=== PATIENT | female | born 1935 | race Caucasian/White ===

== ENCOUNTER 2019-04-21 10:26 | Emergency (ER) | payer MEDICARE, BC ==
[~2019-04-21] VITALS: Ht 162.6 cm; Wt 80.0 kg
[~2019-04-21 10:26] MED LIST: ATOR20TA PO; BENA20TA82 PO; CALC-642 PO; CHOL200035 PO; DEXL60CA3 PO; FESO8TAB PO; METO50TA7 PO; MULT1TAB PO; OMEP-84 PO; SYN0.088T PO
[2019-04-21] MEDS ORDERED: ketorolac trometh inj. 60 MG/2 ML VIAL IM ONE (12:20)
[2019-04-21] MEDS ORDERED: TRAM50TA2 PO (13:05)
[2019-04-21 13:46] VITALS: BP 148/69
--- NOTE | 2019-04-21 14:12 | NUR ---
[employer] EMAN AT BEDSIDE
== END 2019-04-21 14:28 | disposition home or self-care (01) ==
LOC: ER 10:27
DX: S22.088A Other fracture of T11-T12 vertebra, initial encounter for closed fracture (principal); S20.211A Contusion of right front wall of thorax, initial encounter; E78.00 Pure hypercholesterolemia, unspecified; I10 Essential (primary) hypertension; M19.90 Unspecified osteoarthritis, unspecified site; Z88.2 Allergy status to sulfonamides; Z88.8 Allergy status to other drugs, medicaments and biological substances; Z79.899 Other long term (current) drug therapy; Z90.49 Acquired absence of other specified parts of digestive tract; Z90.710 Acquired absence of both cervix and uterus; Z98.890 Other specified postprocedural states; W01.198A Fall on same level from slipping, tripping and stumbling with subsequent striking against other object, initial encounter; Y93.89 Activity, other specified; Y92.89 Other specified places as the place of occurrence of the external cause; Y99.8 Other external cause status
CPT/HCPCS: 71101; 96372; 99284; J1885

== ENCOUNTER 2019-06-12 06:58 | Day surgery (SDC) | payer MEDICARE, BC ==
[~2019-06-12] VITALS: Ht 160 cm; Wt 71.6 kg
[2019-06-12] VITALS (8 sets, daily range): BP systolic 145–181; BP diastolic 72–97
[2019-06-12] MEDS ORDERED: normal saline 1000ml 1,000 ML IV SCH ×2 (07:35→10:03)
[2019-06-12] MEDS ORDERED: cefazolin/dext.iso 2gm/50ml 50 ML IV ONE (07:35)
[2019-06-12 07:47] LABS: BASOPHILS # (AUTO) 0.1 X10'3 (0-0.2); BASOPHILS % (AUTO) 1.1 % (0-1); EOSINOPHILS # (AUTO) 0.2 X10'3 (0-0.9); HEMATOCRIT 44.4 % (35.0-45.0); HEMOGLOBIN 15.2 g/dl (12.0-16.0); LYMPHOCYTES # (AUTO) 1.2 X10'3 (1.1-4.8); LYMPHOCYTES % (AUTO) 16.3 % (21-51); MEAN CORPUSCULAR HEMOGLOBIN 31.4 PG (27.0-31.0); MEAN CORPUSCULAR HGB CONC 34.3 g/dL (33.0-36.5); MEAN CORPUSCULAR VOLUME 91.6 FL (78-98); MEAN PLATELET VOLUME 7.1 FL (7.4-10.4); MONOCYTES # (AUTO) 0.8 X10'3 (0-0.9); MONOCYTES % (AUTO) 10.4 % (2-12); NEUTROPHILS # (AUTO) 5.2 X10'3 (1.8-7.7); NEUTROPHILS % (AUTO) 69.2 % (42-75); PLATELET COUNT 231 X10'3 (140-440); RED BLOOD COUNT 4.84 X10'6 (4.20-5.60); RED CELL DISTRIBUTION WIDTH 14.3 % (11.5-14.5); WHITE BLOOD COUNT 7.6 X10'3 (4.5-11.0)
[2019-06-12] MEDS ORDERED: midazolam 2 mg/2 ml injection IV PRN (07:50)
[2019-06-12] MEDS ORDERED: ceFAZolin 2gm in dextrose, iso 100 ML IV ONE (07:50)
[2019-06-12] MEDS ORDERED: LIDOcaine 1% (10mg/ml) 2ml vial SQ ONE (07:50)
[2019-06-12] MEDS ORDERED: diphenhydrAMINE 50 mg/ml inj IV ONE (07:50)
[2019-06-12] MEDS ORDERED: fentaNYL/PF 50MCG/1 ML 2ML syringe IV PRN (07:50)
[2019-06-12 07:51] LABS: ALBUMIN 3.8 G/DL (3.4-5.0); ANION GAP 11 (8-16); BLOOD UREA NITROGEN 5 MG/DL (7-18); BUN/CREATININE RATIO 7.4 (6.6-38.0); CALCIUM 10.1 MG/DL (8.5-10.1); CHLORIDE 101 MMOL/L (99-107); CREATININE 0.68 MG/DL (0.40-0.90); GLUCOSE 107 MG/DL (70-104); POTASSIUM 3.8 MMOL/L (3.5-5.1); SODIUM 138 MMOL/L (135-145); TOTAL CARBON DIOXIDE 25.7 MMOL/L (24-32); eGFR 82 ML/MIN
[2019-06-12] MEDS ORDERED: VITA400C19 PO (07:56)
[2019-06-12] MEDS ORDERED: OXYB10TA4 PO (07:56)
[2019-06-12] MEDS ORDERED: FISH1CAP15 PO (07:56)
[2019-06-12] MEDS ORDERED: SYN0.112T PO (07:56)
[2019-06-12] MEDS ORDERED: GLUC100017 (07:56)
[2019-06-12] MEDS ORDERED: LIDOcaine 1%/PF 5ML 10 MG/ML VIAL ONE ×2 (08:18→08:57)
[2019-06-12] MEDS ORDERED: midazolam 2 mg/2 ml injection ONE ×3 (08:18→09:12)
[2019-06-12] MEDS ORDERED: diphenhydrAMINE 50 mg/ml inj ONE (08:18)
[2019-06-12] MEDS ORDERED: iohexol 300 MG/1 ML 50ml polymer ONE (08:18)
[2019-06-12] MEDS ORDERED: fentaNYL/PF 50MCG/1 ML 2ML syringe ONE ×3 (08:18→09:12)
[2019-06-12] MEDS ORDERED: morphine 4 MG/ML inj SYRINge IV PRN (10:05)
[2019-06-12] MEDS ORDERED: HYDROcodone/acetaminophen 5mg/325mg tablet PO PRN (10:05)
== END 2019-06-12 13:15 | disposition home or self-care (01) ==
LOC: SSTAY O 06:58
PROVIDERS: ATTEND Radiology Vascular & Interventional Radiology
DX: M48.54XA Collapsed vertebra, not elsewhere classified, thoracic region, initial encounter for fracture (principal); M48.56XA Collapsed vertebra, not elsewhere classified, lumbar region, initial encounter for fracture; M54.9 Dorsalgia, unspecified; M81.0 Age-related osteoporosis without current pathological fracture; E03.9 Hypothyroidism, unspecified; E78.00 Pure hypercholesterolemia, unspecified; K21.9 Gastro-esophageal reflux disease without esophagitis; Z87.891 Personal history of nicotine dependence; Z90.49 Acquired absence of other specified parts of digestive tract; Z90.710 Acquired absence of both cervix and uterus; Z98.890 Other specified postprocedural states; Z88.2 Allergy status to sulfonamides; Z88.8 Allergy status to other drugs, medicaments and biological substances; Z79.899 Other long term (current) drug therapy
CPT/HCPCS: 22513; 22515; 36415; 80048; 85025; 85610; C1713; J1200; J2250; J3010; J7030; Q9967; 99152; 99153

== ENCOUNTER 2021-05-01 20:42 | Inpatient (IN) | payer MEDICARE, BC ==
[~2021-05-01] VITALS: Ht 165.1 cm; Wt 72.7 kg
[~2021-05-01 20:42] MED LIST changes: -BENA20TA82 PO; -CHOL200035 PO; -DEXL60CA3 PO; -FESO8TAB PO; +FISH1CAP15 PO; +GLUC100017 PO; +HYDR-3972 PO; +METO-384 PO; -METO50TA7 PO; -MULT1TAB PO; +OXYB10TA30 PO; -SYN0.088T PO; +SYN0.112T PO; +VITA-336 PO
[2021-05-01 21:47] LABS: BASOPHILS # (AUTO) 0.1 X10'3 (0-0.2); BASOPHILS % (AUTO) 0.9 % (0-1); EOSINOPHILS # (AUTO) 0.3 X10'3 (0-0.9); EOSINOPHILS % (AUTO) 3.6 % (0-6); HEMATOCRIT 38.8 % (35.0-45.0); HEMOGLOBIN 13.2 g/dl (12.0-16.0); LYMPHOCYTES # (AUTO) 1.2 X10'3 (1.1-4.8); LYMPHOCYTES % (AUTO) 15.4 % (21-51); MEAN CORPUSCULAR HGB CONC 33.9 g/dL (33.0-36.5); MEAN CORPUSCULAR VOLUME 88.6 FL (78-98); MEAN PLATELET VOLUME 6.6 FL (7.4-10.4); MONOCYTES # (AUTO) 0.8 X10'3 (0-0.9); MONOCYTES % (AUTO) 9.7 % (2-12); NEUTROPHILS # (AUTO) 5.5 X10'3 (1.8-7.7); NEUTROPHILS % (AUTO) 70.4 % (42-75); PLATELET COUNT 179 X10'3 (140-440); RED BLOOD COUNT 4.38 X10'6 (4.20-5.60); RED CELL DISTRIBUTION WIDTH 14.3 % (11.5-14.5); WHITE BLOOD COUNT 7.8 X10'3 (4.5-11.0)
[2021-05-01 22:02] LABS: ALANINE AMINOTRANSFERASE 39 U/L (12-78); ALBUMIN 3.4 G/DL (3.4-5.0); ALKALINE PHOSPHATASE 184 IU/L (46-116); ANION GAP 10 (8-16); ASPARTATE AMINO TRANSFERASE 25 U/L (10-37); BILIRUBIN,TOTAL 0.5 MG/DL (0.1-1.0); BLOOD UREA NITROGEN 7 MG/DL (7-18); BUN/CREATININE RATIO 11.3 (6.6-38.0); CHLORIDE 99 MMOL/L (99-107); CREATININE 0.62 MG/DL (0.40-0.90); GLUCOSE 118 MG/DL (70-104); POTASSIUM 3.7 MMOL/L (3.5-5.1); SODIUM 135 MMOL/L (135-145); TOTAL CARBON DIOXIDE 26.2 MMOL/L (24-32); TOTAL PROTEIN 6.9 G/DL (6.4-8.2); eGFR > 90 ML/MIN
[2021-05-01] MEDS ORDERED: potassium Cl 40MEQ/1/2NS 520ml 520 ML IV PRN ×2 (22:10)
[2021-05-01] MEDS ORDERED: PERFLUTREN PROTEIN-A MICROSPHR (Optison) 0.22 MG/ML 3ML VIAL IV ONE (22:10)
[2021-05-01] MEDS ORDERED: magnesium 2GM in 50ml NS 50 ML IV PRN (22:10)
[2021-05-01] MEDS ORDERED: acetaminophen 325mg tablet PO PRN (22:10)
[2021-05-01] MEDS ORDERED: magnesium Cl slow-release 64mg tablet PO PRN (22:10)
[2021-05-01] MEDS ORDERED: mag hydrox/Alum hydrox/simeth 30ml oral suspension PO PRN (22:10)
[2021-05-01] MEDS ORDERED: potassium Cl 20 mEq SR tablet PO PRN ×2 (22:10)
[2021-05-01] MEDS ORDERED: morphine 2 MG/ML inj. syringe IV PRN (22:10)
[2021-05-01] MEDS ORDERED: magnesium 4gm in 100ml NS 100 ML IV PRN (22:10)
[2021-05-01] MEDS ORDERED: ondansetron/PF 4mg/2ml inj IV PRN (22:10)
[2021-05-01 22:13] LABS: CLARITY,URINE CLEAR (Clear); COLOR,URINE YELLOW (Yellow); GLUCOSE, URINE NEGATIVE (Neg); KETONES,URINE NEGATIVE (Neg); LEUKOCYTE ESTERASE ,URINE TRACE (Neg); NITRITES, URINE NEGATIVE (Neg); OCCULT BLOOD,URINE NEGATIVE (Neg); PROTEIN,URINE NEGATIVE (Neg); UROBILINOGEN,URINE 0.2 E.U/dL (0.2-1.0)
[2021-05-01 22:15] LABS: UA COLLECTION TYPE STRAIGHT CATH
[2021-05-01 22:18] LABS: PARTIAL THROMBOPLASTIN TIME 31 SECONDS (22-32)
[2021-05-01 22:21] LABS: BACTERIA,URINE 1+ /HPF (Neg); MUCUS STRANDS NONE SEEN /LPF (Neg); RBC,URINE 0-2 /HPF (0-2); SQUAMOUS EPITHELIAL CELL,UR FEW /LPF (FEW); WBC,URINE 0-4 /HPF (0-4)
[2021-05-01] MEDS: dextrose 5%-1/2 normal saline 1,000 ML IV SCH (22:48)
[2021-05-02] VITALS (21 sets, daily range): BP systolic 109–168; BP diastolic 47–84
--- NOTE | 2021-05-02 00:38 | NUR ---
Dr. Chao notified of current elevated BP, new orders received.
[2021-05-02] MEDS ORDERED: hydrALAZINE 20mg/ml inj. IV PRN (00:40)
--- NOTE | 2021-05-02 00:52 | NUR ---
Receiving ISAAC Baldwin notified of hydralizine administration and order.
--- NOTE | 2021-05-02 00:55 | NUR ---
[facility] difficulty.
--- NOTE | 2021-05-02 06:23 | NUR ---
Problems reprioritized. Patient report given, questions answered & plan of care reviewed with Gayatri GRAY.
--- NOTE | 2021-05-02 06:33 | NUR ---
Patient in room ORTHO 4009. I have received report from nancy green and had the opportunity to ask questions and assume patient care.
[2021-05-02 07:02] LABS: BASOPHILS % (AUTO) 0.4 % (0-1); EOSINOPHILS # (AUTO) 0.1 X10'3 (0-0.9); EOSINOPHILS % (AUTO) 1.1 % (0-6); HEMATOCRIT 37.2 % (35.0-45.0); HEMOGLOBIN 12.8 g/dl (12.0-16.0); LYMPHOCYTES # (AUTO) 1.1 X10'3 (1.1-4.8); LYMPHOCYTES % (AUTO) 13.6 % (21-51); MEAN CORPUSCULAR HGB CONC 34.4 g/dL (33.0-36.5); MEAN CORPUSCULAR VOLUME 87.3 FL (78-98); MEAN PLATELET VOLUME 6.6 FL (7.4-10.4); MONOCYTES # (AUTO) 0.8 X10'3 (0-0.9); MONOCYTES % (AUTO) 10.1 % (2-12); NEUTROPHILS # (AUTO) 5.8 X10'3 (1.8-7.7); NEUTROPHILS % (AUTO) 74.8 % (42-75); PLATELET COUNT 172 X10'3 (140-440); RED BLOOD COUNT 4.26 X10'6 (4.20-5.60); WHITE BLOOD COUNT 7.8 X10'3 (4.5-11.0)
[2021-05-02 07:31] LABS: ALANINE AMINOTRANSFERASE 53 U/L (12-78); ALBUMIN 2.9 G/DL (3.4-5.0); ALBUMIN/GLOBULIN RATIO 0.9 (1.1-1.5); ALKALINE PHOSPHATASE 167 IU/L (46-116); ANION GAP 9 (8-16); ASPARTATE AMINO TRANSFERASE 39 U/L (10-37); BILIRUBIN,TOTAL 0.6 MG/DL (0.1-1.0); BLOOD UREA NITROGEN 5 MG/DL (7-18); BUN/CREATININE RATIO 8.9 (6.6-38.0); CALCIUM 8.7 MG/DL (8.5-10.1); CHLORIDE 99 MMOL/L (99-107); CHOL/HDL RATIO 2.8 (0.00-4.99); CHOLESTEROL 138 MG/DL (0-200); CREATININE 0.56 MG/DL (0.40-0.90); GLUCOSE 124 MG/DL (70-104); HDL CHOLESTEROL 49 MG/DL (35-60); LDL CHOLESTEROL 67 MG/DL (50-100); MAGNESIUM 1.7 MG/DL (1.5-2.4); POTASSIUM 3.8 MMOL/L (3.5-5.1); SODIUM 134 MMOL/L (135-145); TOTAL CARBON DIOXIDE 26.1 MMOL/L (24-32); TOTAL PROTEIN 6.3 G/DL (6.4-8.2); TRIGLYCERIDES 72 MG/DL (20-135); eGFR > 90 ML/MIN
[2021-05-02] MEDS: K and/or MAG REPLACEMENT MC SCH ×2 (08:00→19:24)
[2021-05-02] MEDS: enoxaparin 40mg/0.4ml syringe SUBCUT SCH (08:00)
[2021-05-02] MEDS: docusate sod 100mg capsule PO SCH ×2 (08:10→19:16)
[2021-05-02] MEDS: morphine 2 MG/ML inj. syringe IV PRN ×2 (08:15→15:57)
[2021-05-02] MEDS ORDERED: midazolam 1 mg/ML 2ml injection ONE (10:53)
[2021-05-02] MEDS ORDERED: fentaNYL/PF 50MCG/1 ML 2ML syringe ONE ×2 (10:53→12:17)
[2021-05-02] MEDS ORDERED: morphine 2 MG/ML inj. syringe IV PRN (11:50)
[2021-05-02] MEDS ORDERED: ringers solution, lacted 1,000 ML IV SCH (11:50)
[2021-05-02] MEDS ORDERED: HYDROmorphone/PF 0.2 MG/ML SYRINGE IV PRN (11:50)
[2021-05-02] MEDS ORDERED: ondansetron/PF 4mg/2ml inj IV PRN (11:50)
[2021-05-02] MEDS ORDERED: dexamethasone sod phosphate 4mg/ml inj. ONE (11:56)
[2021-05-02] MEDS ORDERED: ondansetron/PF 4mg/2ml inj ONE (11:56)
[2021-05-02] MEDS ORDERED: rocuronium 10mg/ml inj IV ONE (11:56)
[2021-05-02] MEDS ORDERED: LIDOcaine 2% (20mg/ml) 5ml vial ONE (11:56)
[2021-05-02] MEDS ORDERED: neostigmine methylsulfate 1 MG/ML 10ml vial ONE (11:56)
[2021-05-02] MEDS ORDERED: glycopyrrolate 0.2mg/ml inj ONE (11:56)
[2021-05-02] MEDS ORDERED: propofol inj 20 ML IV ONE (11:56)
[2021-05-02] MEDS ORDERED: BUPIVAcaine 0.5% inj/PF 30 ML ONE (11:57)
[2021-05-02] MEDS ORDERED: BUPIVAcaine 0.5% inj/PF 30 ml vial IJ ONE (12:00)
--- NOTE | 2021-05-02 12:16 | NUR ---
Received from OR via ORTHO.BED], accompanied by Anesthesiologist [DR KNOWLES] and report given by Anesthesiolgist. PT PLACED ON O2 AND MONITOR, S/P LEFT HIP PINNING, PT AROUSES EASILY, HAS LEFT LATERAL DRESSING COVERED BY WRAP, CDI, DENIES ANY PAIN OR NAUSEA, WILL CONTINUE TO ASSESS.
[2021-05-02] MEDS ORDERED: labetalol 20mg/4ml (5mg/ml) syringe IV ONE (12:36)
--- NOTE | 2021-05-02 13:37 | NUR ---
Report called to receiving nurse. Transferred via ORTHO BED TO ROOM 2009B Belongings . Special Issues communicated to receiving nurse.
[2021-05-02] MEDS: ceFAZolin/D5W- 1GM premix 50 ML IV SCH ×2 (15:52→23:50)
[2021-05-02] MEDS ORDERED: HYDROcodone/acetaminophen 10/325mg tab PO PRN (16:05)
[2021-05-02] MEDS ORDERED: GLUC-95 PO (17:21)
[2021-05-02] MEDS ORDERED: CALC300T4 PO (17:21)
[2021-05-02] MEDS ORDERED: ATOR20TA PO (17:21)
[2021-05-02] MEDS ORDERED: VITA400T10 PO (17:21)
[2021-05-02] MEDS ORDERED: LEVO100T PO (17:21)
[2021-05-02] MEDS ORDERED: METO1TAB25 PO (17:21)
[2021-05-02] MEDS ORDERED: HYDR-3965 PO (17:21)
[2021-05-02] MEDS ORDERED: OXYB5TAB16 PO (17:21)
[2021-05-02] MEDS ORDERED: OMEG-133 PO (17:21)
[2021-05-02] MEDS ORDERED: OMEP10CA5 PO (17:21)
--- NOTE | 2021-05-02 18:36 | NUR ---
Problems reprioritized. Patient report given, questions answered & plan of care reviewed with taa rn.
--- NOTE | 2021-05-02 18:36 | NUR ---
Patient in room ORTHO 4009. I have received report from Gayatri GRAY and had the opportunity to ask questions and assume patient care.
[2021-05-02] MEDS: dextrose 5%-1/2 normal saline 1,000 ML IV SCH (19:16)
[2021-05-03 02:00] VITALS: BP 137/85
[2021-05-03 06:14] VITALS: BP 151/62
--- NOTE | 2021-05-03 06:29 | NUR ---
Problems reprioritized. Patient report given, questions answered & plan of care reviewed with Molly GRAY.
[2021-05-03 06:33] LABS: BASOPHILS % (AUTO) 0.3 % (0-1); EOSINOPHILS # (AUTO) 0.1 X10'3 (0-0.9); EOSINOPHILS % (AUTO) 0.9 % (0-6); HEMATOCRIT 27.6 % (35.0-45.0); HEMOGLOBIN 9.5 g/dl (12.0-16.0); LYMPHOCYTES # (AUTO) 1.6 X10'3 (1.1-4.8); MEAN CORPUSCULAR HEMOGLOBIN 30.6 PG (27.0-31.0); MEAN CORPUSCULAR HGB CONC 34.3 g/dL (33.0-36.5); MEAN CORPUSCULAR VOLUME 89.2 FL (78-98); MEAN PLATELET VOLUME 7.2 FL (7.4-10.4); MONOCYTES # (AUTO) 1.5 X10'3 (0-0.9); MONOCYTES % (AUTO) 16.1 % (2-12); NEUTROPHILS # (AUTO) 5.9 X10'3 (1.8-7.7); NEUTROPHILS % (AUTO) 64.7 % (42-75); PLATELET COUNT 154 X10'3 (140-440); RED CELL DISTRIBUTION WIDTH 14.3 % (11.5-14.5)
[2021-05-03 06:37] LABS: ALANINE AMINOTRANSFERASE 50 U/L (12-78); ALBUMIN 2.6 G/DL (3.4-5.0); ALBUMIN/GLOBULIN RATIO 0.9 (1.1-1.5); ALKALINE PHOSPHATASE 128 IU/L (46-116); ANION GAP 9 (8-16); ASPARTATE AMINO TRANSFERASE 36 U/L (10-37); BILIRUBIN,TOTAL 0.6 MG/DL (0.1-1.0); BLOOD UREA NITROGEN 10 MG/DL (7-18); BUN/CREATININE RATIO 13.3 (6.6-38.0); CALCIUM 8.2 MG/DL (8.5-10.1); CHLORIDE 100 MMOL/L (99-107); CREATININE 0.75 MG/DL (0.40-0.90); GLUCOSE 126 MG/DL (70-104); MAGNESIUM 1.6 MG/DL (1.5-2.4); SODIUM 134 MMOL/L (135-145); TOTAL CARBON DIOXIDE 25.5 MMOL/L (24-32); TOTAL PROTEIN 5.5 G/DL (6.4-8.2); eGFR 73 ML/MIN
[2021-05-03 07:23] LABS: TOTAL CELLS COUNTED 100
[2021-05-03 07:24] LABS: PLATELET ESTIMATE NORMAL; POIKILOCYTOSIS FEW
[2021-05-03] MEDS: ceFAZolin/D5W- 1GM premix 50 ML IV SCH ×2 (07:45→16:03)
[2021-05-03] MEDS: docusate sod 100mg capsule PO SCH ×2 (07:45→20:36)
[2021-05-03] MEDS: enoxaparin 40mg/0.4ml syringe SUBCUT SCH (07:45)
[2021-05-03] MEDS: K and/or MAG REPLACEMENT MC SCH ×2 (08:00→20:00)
[2021-05-03] MEDS ORDERED: METO-384 PO (08:25)
--- NOTE | 2021-05-03 08:28 | NUR ---
PAGER ID: [phone] MESSAGE: [id number] Gilberto, can you please address med rec? thanks, keegan [phone]
[2021-05-03 10:26] VITALS: BP 128/52
[2021-05-03] MEDS: dextrose 5%-1/2 normal saline 1,000 ML IV SCH (14:10)
[2021-05-03] MEDS ORDERED: HYDROcodone/acetaminophen 5mg/325mg tablet PO PRN (14:25)
[2021-05-03] MEDS ORDERED: calcium carbonate 500mg chew tablet PO PRN (15:00)
[2021-05-03 18:00] VITALS: BP 176/57
--- NOTE | 2021-05-03 18:36 | NUR ---
Problems reprioritized. Patient report given, questions answered & plan of care reviewed with Kendy GRAY.
[2021-05-03] MEDS ORDERED: metoprolol succinate 25mg (24-HOUR) SR. Tablet PO SCH (20:00)
[2021-05-03] MEDS: atorvastatin 20mg tablet PO SCH (20:35)
[2021-05-03] MEDS: vitamin E 400 unit capsule PO SCH (20:36)
[2021-05-03] MEDS: metoprolol succinate 25mg (24-HOUR) SR. Tablet PO SCH (20:36)
[2021-05-03 22:00] VITALS: BP 145/40
[2021-05-04] MEDS: HYDROcodone/acetaminophen 5mg/325mg tablet PO PRN ×2 (02:53→12:44)
[2021-05-04 06:00] VITALS: BP 160/80
[2021-05-04 06:46] LABS: BASOPHILS # (AUTO) 0.1 X10'3 (0-0.2); BASOPHILS % (AUTO) 0.8 % (0-1); EOSINOPHILS # (AUTO) 0.5 X10'3 (0-0.9); EOSINOPHILS % (AUTO) 6.4 % (0-6); HEMOGLOBIN 7.9 g/dl (12.0-16.0); LYMPHOCYTES # (AUTO) 1.2 X10'3 (1.1-4.8); LYMPHOCYTES % (AUTO) 14.3 % (21-51); MEAN CORPUSCULAR HEMOGLOBIN 30.6 PG (27.0-31.0); MEAN CORPUSCULAR HGB CONC 34.2 g/dL (33.0-36.5); MEAN CORPUSCULAR VOLUME 89.5 FL (78-98); MEAN PLATELET VOLUME 6.8 FL (7.4-10.4); MONOCYTES # (AUTO) 1.2 X10'3 (0-0.9); MONOCYTES % (AUTO) 14.7 % (2-12); NEUTROPHILS # (AUTO) 5.2 X10'3 (1.8-7.7); NEUTROPHILS % (AUTO) 63.8 % (42-75); PLATELET COUNT 131 X10'3 (140-440); RED BLOOD COUNT 2.57 X10'6 (4.20-5.60); RED CELL DISTRIBUTION WIDTH 14.5 % (11.5-14.5); WHITE BLOOD COUNT 8.2 X10'3 (4.5-11.0)
--- NOTE | 2021-05-04 06:48 | NUR ---
Patient in room ORTHO 4009. I have received report from Kendy GRAY and had the opportunity to ask questions and assume patient care.
[2021-05-04 07:07] LABS: ALANINE AMINOTRANSFERASE 30 U/L (12-78); ALBUMIN 2.4 G/DL (3.4-5.0); ALBUMIN/GLOBULIN RATIO 0.8 (1.1-1.5); ALKALINE PHOSPHATASE 112 IU/L (46-116); ANION GAP 6 (8-16); ASPARTATE AMINO TRANSFERASE 29 U/L (10-37); BILIRUBIN,TOTAL 0.5 MG/DL (0.1-1.0); BLOOD UREA NITROGEN 7 MG/DL (7-18); BUN/CREATININE RATIO 10.3 (6.6-38.0); CALCIUM 7.8 MG/DL (8.5-10.1); CHLORIDE 100 MMOL/L (99-107); CREATININE 0.68 MG/DL (0.40-0.90); GLUCOSE 113 MG/DL (70-104); MAGNESIUM 1.6 MG/DL (1.5-2.4); SODIUM 132 MMOL/L (135-145); TOTAL CARBON DIOXIDE 25.6 MMOL/L (24-32); TOTAL PROTEIN 5.3 G/DL (6.4-8.2); eGFR 82 ML/MIN
[2021-05-04] MEDS ORDERED: non-formulary drug (Glucosamine HCl/Chondr Su A Na (Cidaflex Tablet) 1 TAB) PO SCH (08:00)
[2021-05-04] MEDS: OMEGA-3/DHA/EPA/FISH OIL 1 EACH CAPSULE.DR PO SCH (08:00)
[2021-05-04] MEDS ORDERED: oxybutynin 5mg tablet PO SCH (08:00)
[2021-05-04] MEDS: K and/or MAG REPLACEMENT MC SCH ×2 (08:00→20:00)
[2021-05-04] MEDS: docusate sod 100mg capsule PO SCH ×2 (08:01→19:27)
[2021-05-04] MEDS: levoTHYROXINE 112mcg tablet PO SCH (08:01)
[2021-05-04] MEDS: metoprolol succinate 25mg (24-HOUR) SR. Tablet PO SCH ×2 (08:01→19:28)
[2021-05-04] MEDS: magnesium hydroxide 30ml (MOM) UD suspension PO PRN (08:41)
--- NOTE | 2021-05-04 09:00 | NUR ---
PAGER ID: [phone] MESSAGE: [id number], Gilberto ALDRIDGE she had aerococcus urinae in her urine, she got 4 doses of 1 gram ancef post operatively but that's all. keegan [phone]
[2021-05-04 11:07] VITALS: BP 175/55
[2021-05-04] MEDS ORDERED: OXYB10TA4 PO (13:30)
[2021-05-04] MEDS: amox tr/potassium clavulanate 875/125mg TAB PO SCH (17:29)
[2021-05-04 18:00] VITALS: BP 137/54
--- NOTE | 2021-05-04 18:11 | NUR ---
Problems reprioritized. Patient report given, questions answered & plan of care reviewed with Eusebia GRAY.
[2021-05-04 19:30] VITALS: BP 148/54
--- NOTE | 2021-05-04 20:26 | NUR ---
pts 48hr tele is up, but spoke to Dr Stein who said it was ok to keep it going until the morning due to bigemy/trigemeny/ectopy.
[2021-05-04] MEDS: atorvastatin 20mg tablet PO SCH (20:32)
[2021-05-04] MEDS: vitamin E 400 unit capsule PO SCH (20:32)
[2021-05-04 22:00] VITALS: BP 152/59
[2021-05-05] MEDS: HYDROcodone/acetaminophen 5mg/325mg tablet PO PRN (05:53)
[2021-05-05 06:12] LABS: BASOPHILS # (AUTO) 0.1 X10'3 (0-0.2); BASOPHILS % (AUTO) 0.8 % (0-1); EOSINOPHILS # (AUTO) 0.5 X10'3 (0-0.9); EOSINOPHILS % (AUTO) 6.4 % (0-6); HEMOGLOBIN 7.4 g/dl (12.0-16.0); LYMPHOCYTES # (AUTO) 1.2 X10'3 (1.1-4.8); LYMPHOCYTES % (AUTO) 16.7 % (21-51); MEAN CORPUSCULAR HEMOGLOBIN 30.3 PG (27.0-31.0); MEAN CORPUSCULAR HGB CONC 34.6 g/dL (33.0-36.5); MEAN CORPUSCULAR VOLUME 87.4 FL (78-98); MEAN PLATELET VOLUME 6.7 FL (7.4-10.4); MONOCYTES # (AUTO) 1.1 X10'3 (0-0.9); MONOCYTES % (AUTO) 14.9 % (2-12); NEUTROPHILS # (AUTO) 4.5 X10'3 (1.8-7.7); NEUTROPHILS % (AUTO) 61.2 % (42-75); PLATELET COUNT 150 X10'3 (140-440); RED BLOOD COUNT 2.44 X10'6 (4.20-5.60); RED CELL DISTRIBUTION WIDTH 14.2 % (11.5-14.5); WHITE BLOOD COUNT 7.3 X10'3 (4.5-11.0)
--- NOTE | 2021-05-05 06:13 | NUR ---
Patient in room ORTHO 4009. I have received report from Eusebia green and had the opportunity to ask questions and assume patient care.
[2021-05-05 06:21] LABS: HEMATOCRIT 21.3 % (35.0-45.0)
--- NOTE | 2021-05-05 06:25 | NUR ---
Page Sent promotional table spacer PAGER ID: [phone] MESSAGE: [id number] Gilberto, hematocrit was 21.3. Christiano Ivy7
[2021-05-05 06:26] LABS: ALANINE AMINOTRANSFERASE 41 U/L (12-78); ALBUMIN 2.1 G/DL (3.4-5.0); ALBUMIN/GLOBULIN RATIO 0.7 (1.1-1.5); ALKALINE PHOSPHATASE 113 IU/L (46-116); ANION GAP 6 (8-16); ASPARTATE AMINO TRANSFERASE 43 U/L (10-37); BILIRUBIN,TOTAL 0.6 MG/DL (0.1-1.0); BLOOD UREA NITROGEN 7 MG/DL (7-18); BUN/CREATININE RATIO 14.6 (6.6-38.0); CALCIUM 7.8 MG/DL (8.5-10.1); CHLORIDE 100 MMOL/L (99-107); CREATININE 0.48 MG/DL (0.40-0.90); GLUCOSE 101 MG/DL (70-104); MAGNESIUM 1.8 MG/DL (1.5-2.4); POTASSIUM 4.2 MMOL/L (3.5-5.1); SODIUM 133 MMOL/L (135-145); TOTAL CARBON DIOXIDE 27.4 MMOL/L (24-32); TOTAL PROTEIN 5.2 G/DL (6.4-8.2); eGFR > 90 ML/MIN
--- NOTE | 2021-05-05 06:28 | NUR ---
Paged dr Stein that pts hematocrit was 21.3. Waiting to see what she will want to do
[2021-05-05 06:32] VITALS: BP 153/59
--- NOTE | 2021-05-05 07:08 | NUR ---
Page Sent PAGER ID: [phone] MESSAGE: [phone] Gilberto, pt Hematocrit was 21.3. thanks dylan [phone]
[2021-05-05] MEDS: levoTHYROXINE 112mcg tablet PO SCH (07:16)
[2021-05-05] MEDS: OMEGA-3/DHA/EPA/FISH OIL 1 EACH CAPSULE.DR PO SCH (07:17)
[2021-05-05] MEDS: docusate sod 100mg capsule PO SCH (07:17)
[2021-05-05] MEDS: magnesium hydroxide 30ml (MOM) UD suspension PO PRN (07:17)
[2021-05-05] MEDS: metoprolol succinate 25mg (24-HOUR) SR. Tablet PO SCH (07:24)
[2021-05-05] MEDS: amox tr/potassium clavulanate 875/125mg TAB PO SCH (07:56)
[2021-05-05] MEDS ORDERED: oxybutynin 5mg tablet PO SCH (08:00)
[2021-05-05] MEDS: K and/or MAG REPLACEMENT MC SCH (08:00)
[2021-05-05] MEDS ORDERED: AMOX-422 PO (10:46)
--- NOTE | 2021-05-05 11:08 | NUR ---
Problems reprioritized. Patient report given, questions answered & plan of care reviewed with Mira at [facility] .
--- NOTE | 2021-05-05 11:25 | NUR ---
Pt left with [facility] personnel, with all belongings, and will be going to [facility]
== END 2021-05-05 11:25 | DRG 481 ==
LOC: ER 20:43 → ED HOLD 22:06 → ORTHO 4S 05-02 01:06
PROVIDERS: ADMIT Internal Medicine; ATTEND Internal Medicine
PROC: 0QS706Z Reposition Left Upper Femur with Intramedullary Internal Fixation Device, Open Approach (ICD-10-PCS; principal; 2021-05-02 10:51)
DX: S72.142A Displaced intertrochanteric fracture of left femur, initial encounter for closed fracture (principal); D62 Acute posthemorrhagic anemia; Z20.822 Contact with and (suspected) exposure to COVID-19; E78.5 Hyperlipidemia, unspecified; I10 Essential (primary) hypertension; E11.9 Type 2 diabetes mellitus without complications; E03.9 Hypothyroidism, unspecified; M81.0 Age-related osteoporosis without current pathological fracture; E78.00 Pure hypercholesterolemia, unspecified; M19.90 Unspecified osteoarthritis, unspecified site; W18.39XA Other fall on same level, initial encounter; Z88.8 Allergy status to other drugs, medicaments and biological substances; Z88.1 Allergy status to other antibiotic agents; Z79.899 Other long term (current) drug therapy; Z90.710 Acquired absence of both cervix and uterus; Z90.49 Acquired absence of other specified parts of digestive tract; Y93.89 Activity, other specified; Y92.098 Other place in other non-institutional residence as the place of occurrence of the external cause; Y99.8 Other external cause status
CPT/HCPCS: 36415; 71045; 73502; 76000; 80053; 80061; 81001; 82948; 83036; 83735; 84443; 85007; 85025; 85610; 85730; 86885; 86900; 86901; 87081; 87088; 87635; 93005; 93306; 97110; 97112; 97530; 99285; C9803; G0378; J0360; J0690; J1100; J1650; J2001; J2250; J2270; J2405; J2704; J2710; J3010; J3490